=== PATIENT | male | born 1945 | race African-American/Black ===

== ENCOUNTER 2019-09-27 16:57 | Emergency (ER) | payer BC ==
[~2019-09-27] VITALS: Ht 180.3 cm; Wt 120.5 kg
[2019-09-27] MEDS ORDERED: FINA1TAB17 PO (17:09)
[2019-09-27 20:27] LABS: BASOPHILS % (AUTO) 0.9 % (0.0-2.0); EOSINOPHILS % (AUTO) 1.6 % (1.0-6.0); HEMATOCRIT 43.9 % (41-53); HEMOGLOBIN 14.2 g/dL (13.5-17.5); LYMPHOCYTES # (AUTO) 3.2 K/uL (1.0-4.8); LYMPHOCYTES % (AUTO) 48.1 % (22.0-44.0); MEAN CORPUSCULAR HEMOGLOBIN 26.8 pg (26.0-34.0); MEAN CORPUSCULAR HGB CONC 32.4 G/dL (31.0-37.0); MEAN CORPUSCULAR VOLUME 83 fL (80-100); MONOCYTES # (AUTO) 0.6 K/uL (0.1-1.0); MONOCYTES % (AUTO) 8.8 % (2.0-9.0); NEUTROPHILS # (AUTO) 2.7 K/uL (1.8-7.7); NEUTROPHILS % (AUTO) 40.6 % (40.0-70.0); PLATELET COUNT (AUTO) 192 K/uL (150-450); RED BLOOD CELL COUNT(AUTO) 5.31 MIL/uL (4.50-5.90); RED CELL DISTRIBUTION WIDTH 14.6 % (11.5-14.5)
[2019-09-27 20:36] LABS: ANION GAP 3 mmol/L (8-16); CALCIUM, TOTAL 8.8 mg/dL (8.8-10.5); CARBON DIOXIDE 31 mmol/L (22-29); CHLORIDE 106 mmol/L (98-107); CREATININE 1.15 mg/dL (0.60-1.30); GLUCOSE,RANDOM 90 mg/dL (70-110); POTASSIUM 4.2 mmol/L (3.5-5.1); SODIUM SERUM 140 mmol/L (136-145); UREA NITROGEN, BLOOD 12 mg/dL (7-18)
[2019-09-27 20:37] LABS: GLOMERULAR FILTR. RATE CALC > 60 mL/min (>60)
[2019-09-27 20:42] LABS: INR 1.1 (0.9-1.1); PROTHROMBIN TIME 10.7 SEC (9.4-11.6)
[2019-09-27 20:57] LABS: B-TYPE NATRIURETIC PEPTIDE 8 pg/mL (0-100)
[2019-09-27 21:01] LABS: ALANINE AMINOTRANSFERASE 30 U/L (12-78); ALBUMIN 3.7 g/dL (3.4-5.0); ALKALINE PHOSPHATASE 92 U/L (46-116); ASPARTATE AMINOTRANSFERASE 18 U/L (15-37); BILIRUBIN,TOTAL 0.5 mg/dL (0.1-1.0); CREATINE KINASE, TOTAL ONLY 119 U/L (39-308); TOTAL PROTEIN, SERUM 7.9 g/dL (6.4-8.2)
[2019-09-27] MEDS ORDERED: SODIUM CHLORIDE 0.9% 100 ML ONE (21:04)
[2019-09-27] MEDS ORDERED: IOVERSOL 350 MG/ML 150 ML VIAL ONE (21:05)
[2019-09-27 22:05] LABS: APPEARANCE,URINE CLEAR (CLEAR); BILIRUBIN,URINE NEGATIVE (NEGATIVE); GLUCOSE, URINE (UA) NEGATIVE (NEGATIVE); KETONES,URINE 15 mg/dL (NEGATIVE); LEUKOCYTE ESTERASE ,URINE NEGATIVE (NEGATIVE); NITRATE,URINE NEGATIVE (NEGATIVE); OCCULT BLOOD,URINE NEGATIVE (NEGATIVE); PROTEIN,URINE NEGATIVE (NEGATIVE); UROBILINOGEN,URINE 0.2 mg/dL (<=1.0)
[2019-09-28 00:06] VITALS: BP 151/78
== END 2019-09-28 00:12 | disposition home or self-care (01) ==
LOC: EMS 16:59
DX: R04.1 Hemorrhage from throat (principal); Z79.899 Other long term (current) drug therapy
CPT/HCPCS: 36415; 71045; 71260; 80053; 81003; 82550; 83880; 84484; 85025; 85610; 85730; 93005; 99285; J7050; Q9967

== ENCOUNTER 2023-09-02 11:05 | Emergency (ER) | payer BC ==
[~2023-09-02] VITALS: Ht 180.3 cm; Wt 113.6 kg
[~2023-09-02 11:05] MED LIST: FINA1TAB17 PO
[2023-09-02 11:14] VITALS: TEMP 97.6
[2023-09-02 11:53] LABS: COVID AG,FIA SOURCE NASAL SWAB
[2023-09-02 12:44] LABS: SARS-COV2 (COVID) ANTIGEN,FIA Negative (Negative)
[2023-09-02 12:46] LABS: INFLUENZA TYPE A NEGATIVE FOR TYPE A (NEGATIVE); INFLUENZA TYPE B NEGATIVE FOR TYPE B (NEGATIVE)
[2023-09-02 14:00] VITALS: BP 136/95; PULSE 98; RESP 18
== END 2023-09-02 14:04 | disposition home or self-care (01) ==
LOC: EMS 11:05
DX: J06.9 Acute upper respiratory infection, unspecified (principal); H61.20 Impacted cerumen, unspecified ear; Z20.822 Contact with and (suspected) exposure to COVID-19
CPT/HCPCS: 71045; 87804; 99284